=== PATIENT | female | born 1975 | race Caucasian/White ===

== ENCOUNTER 2018-07-30 19:19 | Emergency (ER) | payer OTHER ==
[~2018-07-30] VITALS: Ht 157.5 cm; Wt 80.3 kg
[2018-07-30 19:23] VITALS: Ht 157.5 cm; Wt 80.3 kg
[2018-07-30 20:16] LABS: BASOPHIL % 0.4 % (0-2); PLATELET COUNT 259 x10^3mcL (130-400); RED CELL DISTRIBUTION WIDTH 13.3 % (11.5-14.5)
[2018-07-30 20:27] LABS: CALCIUM 8.6 mg/dL (8.5-10.1); CARBON DIOXIDE 25.4 mmol/L (21-32); CHLORIDE SERUM 104 mmol/L (98-107); CREATININE SERUM 0.8 mg/dL (0.6-1.0); GFR1 > 60 mL/min; GLUCOSE SERUM 104 mg/dL (74-106); POTASSIUM SERUM 3.6 mmol/L (3.5-5.1); SODIUM SERUM 138 mmol/L (136-145)
[2018-07-30 20:31] LABS: ALBUMIN 3.4 g/dL (3.4-5.0); ALKALINE PHOSPHATASE 94 U/L (46-116); ALT/SGPT 31 U/L (14-59); AST/SGOT 35 U/L (15-37); BILIRUBIN TOTAL 0.29 mg/dL (0.20-1.00); MAGNESIUM 1.9 mg/dL (1.8-2.4); TOTAL PROTEIN, SERUM 7.6 g/dL (6.4-8.2)
[2018-07-30 21:22] LABS: AMPHETAMINE QUAL UR NONE DETECTED (See below)
[2018-07-30 22:24] VITALS: BP 125/78
== END 2018-07-30 22:24 | disposition home or self-care (01) ==
LOC: ED 19:19
PROVIDERS: Emergency Medicine
DX: F32.9 Major depressive disorder, single episode, unspecified (principal); T42.4X2A Poisoning by benzodiazepines, intentional self-harm, initial encounter; Y92.89 Other specified places as the place of occurrence of the external cause
CPT/HCPCS: 36415; G0480